=== PATIENT | female | born 1955 | race Caucasian/White ===

== ENCOUNTER 2023-10-23 08:58 | Outpatient (OUT) | payer MEDICARE, OTHER, SELFPAY ==
--- NOTE | 2023-10-23 | XR_ITS ---
[place] [id number] Patient Name: JENIFFER GONZALES MRN: [id number] date: 1955 Sex: F Assigned Patient Location: [facility] Current Patient Location: Accession/Order Number: [id number] Exam Date: 10/23/2023 09:10 Report Date: 10/24/2023 14:13 At the request of: GERI CHATTERJEE Procedure: XR foot LT min 3V PROCEDURE: XR foot LT min 3V HISTORY: LEFT FOOT PAIN ; lateral foot pain COMPARISON: XR foot left 10/09/2023 FINDINGS: BONES:Mild degenerative changes along dorsal margin of the navicular-medial cuneiform joint. Mild degenerative changes of the 5th proximal interphalangeal joint. Small calcaneal plantar spur and degenerative enthesophyte at Achilles tendon insertion. Mild lateral prominence of the head of the 5th metatarsal. SOFT TISSUES:Suspect mild soft tissue thickening lateral to the head of the 5th metatarsal. EFFUSION:None visible. OTHER: Negative. XR/XR foot LT min 3V IMPRESSION: 1. No acute bone abnormality. 2. Multifocal mild degenerative changes. 3. Suspect lateral mild bunion formation. Electronically authenticated by: KAI DYER Date: 10/24/2023 14:13
== END 2023-10-23 08:59 | disposition home or self-care (01) ==
LOC: RAD 08:59
PROVIDERS: Visit Provider Podiatrist Foot & Ankle Surgery
DX: M84.375A Stress fracture, left foot, initial encounter for fracture (principal); M77.32 Calcaneal spur, left foot
CPT/HCPCS: 73630